=== PATIENT | female | born 1935 | race Two or more races ===

== ENCOUNTER → 2017-04-26 | Outpatient (CLI) | payer MEDICARE, OTHER ==
[~2017-04-26] MED LIST: SIMV40TA3 PO; ZOLP10TA PO
--- NOTE | 2017-04-27 08:54 | RADRPT ---
PROCEDURE: LEFT KNEE X-RAY CLINICAL INDICATION: PAIN TECHNIQUE: AP, lateral, and oblique views of the knee were obtained. COMPARISON: Plain radiographs of the left knee from 06/29/2016 FINDINGS: No acute fracture or dislocation is seen. There is normal mineralization. There are mild to moderate degenerative changes involving the medial compartment including joint spa ce narrowing and small osteophytes, unchanged. Mild narrowing of the lateral compartment is also aga in noted. 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 There is no joint effusion. There is no significant soft tissue swelling. IMPRESSION: Stable mild to moderate degenerative changes involving the medial greater than lateral compartments. Redemonstration of synovial osteochondromatosis. RPTAT: EE Physician Victoria Date Time Electronically viewed and signed by Physician Victoria on 04/27/2017 08:53 RA/
--- NOTE | 2017-04-28 23:25 | HKNOTE ---
DATE OF SERVICE: 04/26/2017 CHIEF COMPLAINT: Status post operative arthroscopy of the left knee. HISTORY OF PRESENT ILLNESS: The patient had operative arthroscopy of her left knee on 07/09/2016. In January 2017 she fell in [facility]. She was able to walk, but had pain and swelling of the knee which gradually went away. Now, she has a new problem, without injury. She has pain and swelling of the left knee. The knee is not locked and does not feel unstable. PHYSICAL EXAMINATION: On examination, the knee has a full range of motion. There is pain and tenderness over the medial joint line. Pain on forced extension. IMAGING: Her intraoperative arthroscopic pictures were reviewed with her. She is advised that there is a great deal of arthritis in the knee. MANAGEMENT: Under sterile conditions, she was given injection of 2 mL of Kenalog and 6 mL of 2 percent lidocaine into the knee and she will be seen again as necessary. Dictated By: Christian Bruno MD /emmy/steph /Document#: [id number]
== END | disposition home or self-care (01) ==
LOC: HKI 13:41
DX: Z47.1 Aftercare following joint replacement surgery (principal); Z96.652 Presence of left artificial knee joint; M25.562 Pain in left knee; M17.12 Unilateral primary osteoarthritis, left knee
CPT/HCPCS: 20610; 73562; G0463

== ENCOUNTER → 2017-08-09 | Outpatient (CLI) | payer MEDICARE, OTHER ==
--- NOTE | 2017-08-10 06:50 | HKNOTE ---
DATE OF SERVICE: 08/09/2017 MAIN COMPLAINT: Pain in the left hip. HISTORY OF MAIN COMPLAINT: The patient is an 82-year-old female who has been seen by me in the past . She had operative arthroscopy on her left knee performed by me on 07/09/2016. She no longer has any problems with that knee. She now complains of pain in her left hip which has been present for about 2 months. There has been no history of injury. MAIN COMPLAINT: Pain in the left hip is localized to the left greater trochanter and radiates down the left leg all the way to the dorsum of the left foot. There is no numbness or tingling in the le g or foot. She has had this pain on and off now for 2 to 3 years, but it suddenly became much more severe in the last couple of weeks. The pain is aggravated by stair climbing. She does get night p ain. She takes ibuprofen for the pain. She does not have a problem with her lower back. On a leve l surface she can walk a block or 2 using a cane or walker. She limps part of the time. The left leg feels longer than the right leg. She does not have a shoe lift. She cannot clip her t oenails or tie her shoelaces. She is able to put on her shoes and socks. SPORTING ACTIVITIES: None. PREVIOUS ORTHOPEDIC OPERATIONS: Right total knee replacement. PAST ORTHOPEDIC HISTORY: Right total knee replacement, laminectomy. PRIOR CORTISONE INTAKE: One cortisone injection into the opposite knee. ALCOHOL INTAKE: Minimal. She denies being an alcoholic. OTHER JOINT PROBLEMS: None. PAST MEDICAL HISTORY: See patient's records. PHYSICAL EXAMINATION: GENERAL: Patient is a rather fragile looking 82-year-old female. She comes in with her daughter, Grace mann who is a nurse practitioner. The patient uses a walker. VITAL SIGNS: Height 5 feet 6 inches, weight 167 pounds, blood pressure 125/65, temperature 98.0. LEFT HIP: A full range of motion. Marked tenderness over the left greater trochanter. RIGHT HIP: No clinically underlying problem. NEUROLOGIC: Lower extremities, deep tendon reflexes. IMAGING: Plain x-rays of Mrs. Delvalle's hips were obtained today. These do not show any underly ing pathology the left hip. DICTATION ENDS HERE Dictated By: EDGAR DE LA ROSA/CHITO Conf#: [id number] [facility]#: [id number]
--- NOTE | 2017-08-10 08:24 | RADRPT ---
PROCEDURE: XR pelvis and left hip. CLINICAL INDICATION: pain TECHNIQUE: AP pelvis, AP and frog lateral views of the left hip were performed. COMPARISON: None. FINDINGS: There is a 1.8 cm well-circumscribed lucent lesion in the left femoral head. There is normal mineralization and alignment. No fracture is identified. There are mild degenerative changes of the right and left hips, with joint space narrowing and subch ondral sclerosis. There are degenerative changes of the symphysis pubis with joint space narrowing. The soft tissues are unremarkable. RPTAT: AA IMPRESSION: 1.8 cm well circumscribed lucent lesion in the left femoral head. Further evaluation with a CT or MR I is recommended. Mild degenerative changes of the hips. .Ivan Hernandez MD, Date Time Electronically viewed and signed by .Ivan Hernandez MD, on 08/10/2017 08:24 .S/
== END | disposition home or self-care (01) ==
LOC: HKI 09:53
DX: M25.562 Pain in left knee (principal); Z96.651 Presence of right artificial knee joint
CPT/HCPCS: 20610; 73502; G0463